=== PATIENT | female | born 1950 | race Caucasian/White ===

== ENCOUNTER 2018-06-10 20:59 | Emergency (ER) | payer OTHER, MEDICARE ==
[2018-06-10 21:13] VITALS: BP 134/83; PULSE 89; RESP 18; TEMP 98.2
[2018-06-10] MEDS ORDERED: KETOROLAC 30 MG/ML 1 ML VIAL IM STA (21:43)
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
--- NOTE | 2018-06-10 22:19 | XR ---
EXAMINATION TYPE: XR wrist complete RT DATE OF EXAM: 06/10/2018 COMPARISON: NONE HISTORY: Right wrist pain TECHNIQUE: 4 views FINDINGS: I see no fracture nor dislocation. Joint spaces are normal. There are no erosions. IMPRESSION: Negative right wrist exam.
== END 2018-06-10 22:51 | disposition home or self-care (01) ==
LOC: EC 20:59
DX: M54.2 Cervicalgia (principal); M25.531 Pain in right wrist; K21.9 Gastro-esophageal reflux disease without esophagitis; E07.9 Disorder of thyroid, unspecified; G62.9 Polyneuropathy, unspecified; Z88.8 Allergy status to other drugs, medicaments and biological substances; Z79.899 Other long term (current) drug therapy; V44.6XXA Car passenger injured in collision with heavy transport vehicle or bus in traffic accident, initial encounter; Y92.410 Unspecified street and highway as the place of occurrence of the external cause
CPT/HCPCS: 99284; 96372; 73110; J1885

== ENCOUNTER → 2018-09-02 | Outpatient (CLI) | payer MEDICARE ==
--- NOTE | 2018-09-03 13:52 | MM ---
Reason for exam: screening (asymptomatic). Last mammogram was performed 1 year ago. History: Patient is postmenopausal. Took hormonal contraceptives for 2 years. Physical Findings: A clinical breast exam by your physician is recommended on an annual basis and results should be correlated with mammographic findings. MG Screening Mammo w CAD Bilateral CC and MLO view(s) were taken. Prior study comparison: September 01, 2017, bilateral MG screening mammo w CAD. September 23, 2016, bilateral MG screening mammo w CAD. The breast tissue is heterogeneously dense. This may lower the sensitivity of mammography. There are central inferior posterior depth right calcifications appearing similar to the priors. No suspicious abnormality. No significant changes when compared with prior studies. ASSESSMENT: Benign, BI-RAD 2 RECOMMENDATION: Routine screening mammogram of both breasts in 1 year.
== END | disposition home or self-care (01) ==
LOC: RADMAMWWP 07:54
PROVIDERS: ATTEND Obstetrics & Gynecology
DX: Z12.31 Encounter for screening mammogram for malignant neoplasm of breast (principal)
CPT/HCPCS: 77067

== ENCOUNTER → 2019-09-05 | Outpatient (CLI) | payer MEDICARE ==
--- NOTE | 2019-09-06 10:26 | MM ---
Reason for exam: screening (asymptomatic). Last mammogram was performed 1 year ago. History: Patient is postmenopausal. Took hormonal contraceptives for 2 years. Physical Findings: A clinical breast exam by your physician is recommended on an annual basis and results should be correlated with mammographic findings. MG Screening Mammo w CAD Bilateral CC and MLO view(s) were taken. Prior study comparison: September 02, 2018, bilateral MG screening mammo w CAD. September 01, 2017, bilateral MG screening mammo w CAD. The breast tissue is heterogeneously dense. This may lower the sensitivity of mammography. There is a stable right central posterior depth group of calcifications back to 2016. No suspicious abnormality. No significant changes when compared with prior studies. ASSESSMENT: Benign, BI-RAD 2 RECOMMENDATION: Routine screening mammogram of both breasts in 1 year.
== END ==
LOC: RADMAMWWP 08:00
PROVIDERS: ATTEND Obstetrics & Gynecology
DX: Z12.31 Encounter for screening mammogram for malignant neoplasm of breast (principal)
CPT/HCPCS: 77067

== ENCOUNTER → 2020-10-16 | Outpatient (CLI) | payer MEDICARE ==
--- NOTE | 2020-10-17 12:11 | MM ---
Reason for exam: screening (asymptomatic). Last mammogram was performed 1 year and 1 month ago. History: Patient is postmenopausal. Took hormonal contraceptives for 2 years. Physical Findings: A clinical breast exam by your physician is recommended on an annual basis and results should be correlated with mammographic findings. MG Screening Mammo w CAD Bilateral CC and MLO view(s) were taken. Prior study comparison: September 05, 2019, bilateral MG screening mammo w CAD. September 02, 2018, bilateral MG screening mammo w CAD. The breast tissue is heterogeneously dense. This may lower the sensitivity of mammography. No significant changes when compared with prior studies. ASSESSMENT: Benign, BI-RAD 2 RECOMMENDATION: Routine screening mammogram of both breasts in 1 year.
== END | disposition home or self-care (01) ==
LOC: RADMAMWWP 08:13
PROVIDERS: ATTEND Obstetrics & Gynecology
DX: Z12.31 Encounter for screening mammogram for malignant neoplasm of breast (principal)
CPT/HCPCS: 77067

== ENCOUNTER → 2021-01-02 | Outpatient (CLI) | payer MEDICARE ==
--- NOTE | 2021-01-02 12:12 | CONS ---
CONSULTATION DATE OF SERVICE: 01/02/2021 This 70-year-old lady had been re-evaluated in Sleep Center for obstructive sleep apnea- hypopnea syndrome. The patient was seen in our office about 14 years ago. At that time, she was diagnosed with obstructive sleep apnea-hypopnea syndrome. She was started on treatment with CPAP and she continued to use CPAP equipment all these years, but she never came for followup. Originally, she feels well and there were no problems, but recently she started to have multiple awakenings from sleep. Her sleep schedule from 11 p.m. to 7:30 a.m. basically 7 days a week. No problem with falling asleep. No TV in bedroom. She wakes up from sleep up to 4 times with nocturia, dry mouth, episodes of gasping for air. In the morning, she wakes up tired falling asleep during the day, worried about her sleep, has episodes of anxiety. She increased her weight from around 160 pounds 10 years ago to 198 pounds, which could be the reason that CPAP equipment not working for her at the present time because again she changed her weight. Extremely high [place] Sleepiness Scale of 18. I checked the patient's CPAP unit. CPAP pressure 7 cm of water, usage 25 out of 30 nights more than 4 hours. Average usage is 6.3 hours per night, which indicated good compliance with CPAP therapy. machine does not have any information about apnea- hypopnea index. PAST MEDICAL HISTORY: Positive for headaches, arthritis, acid reflux, hypothyroidism, sinus problems, episodes of anxiety, acid reflex. PAST SURGICAL HISTORY: Cholecystectomy, hysterectomy, bladder suspension. FAMILY HISTORY: Lung problems. REVIEW OF SYSTEMS: Multiple awakenings from sleep, sleepiness during the day. Extremely high [place] Sleepiness Scale was over 18. PHYSICAL EXAMINATION: GENERAL: lady without distress. VITAL SIGNS: BP 138/69, HR 76, RR 12, height 5 feet 7 inches, weight 198.2, temperature 98.1, oxygen saturation on room air 97%. HEENT: PERRLA, EOMI. Oropharynx extremely low position of soft palate, Mallampati 4. NECK: wide neck 16-1/2 inches in circumference. LUNGS: Clear to percussion and to auscultation. Good air exchange. No wheezing or rhonchi. HEART: S1, S2 regular. No murmurs, gallops, or rubs. ABDOMEN: Soft and nontender. Bowel sounds are present. No organomegaly appreciated. EXTREMITIES: No clubbing or cyanosis. UPSET OPERATOR: Awake, alert, and oriented X3. Cranial nerves 2 to 7 intact. There is no fasciculation or atrophy. noted. No focal deficits observed. IMPRESSION: 1. History of obstructive sleep apnea-hypopnea syndrome for 14 years. The patient continued to use her CPAP equipment with good compliance. CPAP unit is old. No information about apnea-hypopnea index. The patient awakenings from sleep multiple times around 4 with nocturia and gasping for air. The patient increased her weight around 38 pounds since her previous titration. Extremely low position of soft palate. Mallampati 4. Significant excessive daytime sleepiness. [place] Sleepiness Scale is 18. Wide neck 16-1/2 inches in circumference. 2. Extremely high excessive daytime sleepiness with [place] Sleepiness Scale of 18, may dictate necessity to include hypersomnia in differential diagnosis, but most probably it is related to a properly treated obstructive sleep apnea-hypopnea syndrome at the present time. 3. Obesity, body mass index 31.0. 4. Headaches. 5. Arthritis. 6. Acid reflux. 7. Hypothyroidism. 8. Sinus problems. 9. Anxiety episodes. 10.Status post cholecystectomy. 11.Status post bladder suspension. 12.Status post hysterectomy. PLAN: 1. We will repeat CPAP titration for re-evaluation of effective CPAP pressure at the present time. 2. Patient will receive new CPAP equipment. 3. Watching and losing weight. 4. Sleep hygiene with regular time in bed for 7-1/2 to 8 hours. 5. No driving if feeling any sleepiness. Thank you very much for referring this patient for evaluation. Sincerely, Mehran Chapa MD, PhD, FAASM Diplomat of [place] [employer] [place] [employer] Pasting Machine Offbearer of [facility] [place] MMODL / IJN: [id number] /
== END | disposition home or self-care (01) ==
LOC: SLEEP 09:54
PROVIDERS: ATTEND Internal Medicine
DX: G47.33 Obstructive sleep apnea (adult) (pediatric) (principal); E66.9 Obesity, unspecified; R51.9 Headache, unspecified; M19.90 Unspecified osteoarthritis, unspecified site; K21.9 Gastro-esophageal reflux disease without esophagitis; E03.9 Hypothyroidism, unspecified; L98.8 Other specified disorders of the skin and subcutaneous tissue; F41.9 Anxiety disorder, unspecified; Z99.89 Dependence on other enabling machines and devices; Z90.49 Acquired absence of other specified parts of digestive tract; Z98.890 Other specified postprocedural states; Z68.31 Body mass index [BMI] 31.0-31.9, adult
CPT/HCPCS: 99211

== ENCOUNTER → 2021-04-10 | Outpatient (CLI) | payer MEDICARE ==
--- NOTE | 2021-04-10 12:12 | SFUN ---
SLEEP CENTER FOLLOW UP NOTE DATE OF SERVICE: 04/10/2021 This 70-year-old lady has been followed in Sleep Center for treatment of obstructive sleep apnea-hypopnea syndrome. Recently the patient had a CPAP titration and after that she received new CPAP unit. Today is her first visit after she started to use her CPAP equipment. The patient is able to use equipment every night, but was not comfortable with the nasal mask and it was changed to the full face mask. Presently, she is using DreamWear which covered mouth and goes onto the nose and she feels okay with this mask. She feels better in terms of alertness during the day. Previously, her [place] Sleepiness Scale was 18 today it is 12. She still feels a little bit sleepy, but according to patient, she feels significantly better than before. I checked her CPAP unit. Range of the pressure 5-12 with average pressure 10.2, usage 30/30 nights for more than 4 hours. Average usage is 7.7 hours per night. Leak is 13 L/minute which is acceptable. Apnea-hypopnea index is 6.8, slightly increased. PHYSICAL EXAMINATION: GENERAL: Patient in no distress. VITAL SIGNS: BP 130/69, HR 74, RR 16, weight 196.0, temperature 97.7, oxygen saturation at room air 97%. HEENT: PERRLA, EOMI. Oropharynx extremely low position of soft palate, Mallampati 4. NECK: 16-1/2 inches in circumference. LUNGS: Clear to percussion and to auscultation. Good air exchange. No wheezing or rhonchi. HEART: S1, S2 regular. No murmurs, gallops, or rubs. ABDOMEN: Soft and nontender. Bowel sounds are present. No organomegaly appreciated. EXTREMITIES: No clubbing or cyanosis. PURCHASING ASSISTANT: Awake, alert, and oriented X3. Cranial nerves 2 to 7 intact. There is no fasciculation or atrophy. noted. No focal deficits observed. IMPRESSION: 1. Obstructive sleep apnea-hypopnea syndrome. Patient demonstrated 100% compliance with treatment, benefitting from treatment. 2. Obesity. 3. Headaches. 4. Arthritis. 5. Acid reflux. 6. Hypothyroidism. 7. Sinus problems. 8. Episodes of anxiety. 9. Status post cholecystectomy. 10.Status post bladder suspension. 11.Status post hysterectomy. PLAN: 1. I adjust pressure in CPAP unit to the maximal level of 14. 2. Patient will continue to use full-face mask DreamWear. 3. Patient will continue to use PAP equipment every night for the whole night. 4. Sleep hygiene with regular time in bed for at least 7-1/2 to 8 hours. 5. Precautions related to driving. No driving if feeling sleepiness. 6. I will maintain all necessary prescription for PAP supplies including mask, tube, filters. 7. Watching weight. 8. Follow-up visit in 6 months or earlier if patient has any problems. Thank you very much for allowing me to participate in management of your patient. I spent with patient and documentation more 30 minutes. Sincerely, Mehran Chapa MD, PhD, FAASM Diplomat of [place] [employer] [place] [employer] Receiver [employer] of [facility] [place] FREDERICK / JOHN: [id number] /
== END ==
LOC: SLEEP 10:28
PROVIDERS: ATTEND Internal Medicine
DX: G47.33 Obstructive sleep apnea (adult) (pediatric) (principal); E66.9 Obesity, unspecified; M19.90 Unspecified osteoarthritis, unspecified site; K21.9 Gastro-esophageal reflux disease without esophagitis; E03.9 Hypothyroidism, unspecified; J34.9 Unspecified disorder of nose and nasal sinuses; F41.9 Anxiety disorder, unspecified; Z90.49 Acquired absence of other specified parts of digestive tract; Z90.710 Acquired absence of both cervix and uterus; Z96.0 Presence of urogenital implants; Z88.8 Allergy status to other drugs, medicaments and biological substances

== ENCOUNTER → 2021-10-18 | Outpatient (CLI) | payer MEDICARE ==
--- NOTE | 2021-10-21 11:39 | MM ---
Reason for exam: screening (asymptomatic). Last mammogram was performed 1 year ago. History: Patient is postmenopausal. Took hormonal contraceptives for 2 years. Physical Findings: A clinical breast exam by your physician is recommended on an annual basis and results should be correlated with mammographic findings. MG Screening Mammo w CAD Bilateral CC and MLO view(s) were taken. Prior study comparison: October 16, 2020, bilateral MG screening mammo w CAD. September 05, 2019, bilateral MG screening mammo w CAD. The breast tissue is heterogeneously dense. This may lower the sensitivity of mammography. There is no discrete abnormality. No significant changes when compared with prior studies. ASSESSMENT: Negative, BI-RAD 1 RECOMMENDATION: Routine screening mammogram of both breasts in 1 year.
== END | disposition home or self-care (01) ==
LOC: RADMAMWWP 06:52
PROVIDERS: ATTEND Obstetrics & Gynecology
DX: Z12.31 Encounter for screening mammogram for malignant neoplasm of breast (principal)
CPT/HCPCS: 77067

== ENCOUNTER → 2021-10-30 | Outpatient (CLI) | payer MEDICARE ==
--- NOTE | 2021-10-30 22:11 | SFUN ---
SLEEP CENTER FOLLOW UP NOTE DATE OF SERVICE: 10/30/2021 Follow-up visit this 71-year-old lady has been followed in Sleep Center for treatment of obstructive sleep apnea-hypopnea syndrome. Patient continued to use her CPAP equipment every night. Does not snore. [place] Sleepiness Scale is 8 which is in normal range. During the last visit it was 12 and subsequently goes down from 18. Subsequently, she improved her alertness during the day. I checked her CPAP unit. Range of the pressure 5-14, average pressure 10.9. Usage is 29/30 nights for more than 4 hours, average 7.5 hours per night. Leak is only L/minute. Apnea-hypopnea index is 4, which is in normal range. The patient has been fitted with a Dream Wear under the nose mask and the patient likes this mask a lot. MEDICATIONS: Levothyroxine 112 mcg 4 times a week and 110 mcg 3 times a week, cetirizine 10 mg once a day, famotidine 20 mg 2 tablets a day, tolterodine 4 mg once a day. 128 once a day. PHYSICAL EXAMINATION: GENERAL: Patient in no distress. BP 103/66, HR 73, RR 15, height 5 feet 6-1/4 inches, weight 173.8 pounds, temperature 98.2, oxygen saturation at room air 98%. Oropharynx: Extremely low position of soft palate, Mallampati 4. NECK: Supple, no JVD. Thyroid is not palpable. LUNGS: Clear to percussion and to auscultation. Good air exchange. No wheezing or rhonchi. HEART: S1, S2 regular. No murmurs, gallops, or rubs. ABDOMEN: Soft and nontender. Bowel sounds are present. No organomegaly appreciated. EXTREMITIES: No clubbing or cyanosis. MEAT MOLDER: Awake, alert, and oriented X3. Cranial nerves 2 to 7 intact. There is no fasciculation or atrophy. noted. No focal deficits observed. IMPRESSION: 1. Obstructive sleep apnea-hypopnea syndrome. Patient demonstrated great compliance with treatment, benefitting from treatment. The patient has been fitted with a different type of mask DreamWear under the nose. Patient likes it. 2. Overweight, body mass index 27.7. The patient lost weight since last visit. 3. Headaches. 4. Arthritis. 5. Acid reflux. 6. Sinuses problems. 7. Hypothyroidism. 8. Episodes of anxiety. 9. Status post cholecystectomy. 10.Status post hysterectomy. 11.Status post bladder suspension. PLAN: 1. Prescription for Dream Wear under the nose mask. 2. Patient will continue to use PAP equipment every night for the whole night. 3. Sleep hygiene with regular time in bed for at least 7-1/2 to 8 hours. 4. Precautions related to driving. No driving if feeling sleepiness. 5. I will maintain all necessary prescription for PAP supplies including mask, tube, filters. 6. Watching weight. 7. Follow-up visit in 6 months or earlier if patient has any problems. Thank you very much for allowing me to participate in the management of your patient. Sincerely, FREDERICK / LLOYDN: [id number] /
== END | disposition home or self-care (01) ==
LOC: SLEEP 09:58
PROVIDERS: ATTEND Internal Medicine
DX: G47.33 Obstructive sleep apnea (adult) (pediatric) (principal); E66.3 Overweight; Z68.27 Body mass index [BMI] 27.0-27.9, adult; R51.9 Headache, unspecified; M19.90 Unspecified osteoarthritis, unspecified site; K21.9 Gastro-esophageal reflux disease without esophagitis; E03.9 Hypothyroidism, unspecified; F41.9 Anxiety disorder, unspecified

== ENCOUNTER → 2022-10-20 | Outpatient (CLI) | payer MEDICARE ==
--- NOTE | 2022-10-21 09:56 | MM ---
Reason for Exam: Screening (asymptomatic). Last screening mammogram was performed 12 month(s) ago. Patient History: Menarche at age 14. First Full-Term at age 25. Left ovary removed at age 56. Right ovary removed at age 56. Hysterectomy at age 56. Postmenopausal. Patient used Hormonal Contraceptives for 2 years. Risk Values: [place] 5 year model risk: 1.5%. NCI Lifetime model risk: 4.8%. Prior Study Comparison: 09/05/2019 Bilateral Screening Mammogram, [facility]. 10/16/2020 Bilateral Screening Mammogram, [facility]. 10/18/2021 Bilateral Screening Mammogram, [facility]. Tissue Density: The breast tissue is heterogeneously dense. This may lower the sensitivity of mammography. Findings: Analyzed By CAD. There is no suspicious group of microcalcifications or new suspicious mass in either breast. Not appearing calcifications within both breasts. No significant change from prior exam. Overall Assessment: Benign, BI-RAD 2 Management: Screening Mammogram of both breasts in 1 year. A clinical breast exam by your physician is recommended on an annual basis and results should be correlated with mammographic findings. Electronically signed and approved by: Terrell Veloz D.O.
== END | disposition home or self-care (01) ==
LOC: RADMAMWWP 07:48
PROVIDERS: ATTEND Obstetrics & Gynecology
DX: Z12.31 Encounter for screening mammogram for malignant neoplasm of breast (principal); Z78.0 Asymptomatic menopausal state; Z90.721 Acquired absence of ovaries, unilateral
CPT/HCPCS: 77063; 77067

== ENCOUNTER → 2022-10-29 | Outpatient (CLI) | payer MEDICARE ==
--- NOTE | 2022-10-29 10:58 | P.PN ---
Subjective DATE: 10/29/2022 FOLLOW UP VISIT. Patient with obstructive sleep apnea hypopnea syndrome return to sleep center for follow-up visit. Information from previous visit have been reviewed. Patient is using PAP equipment every night for the whole night, getting PAP supplies in time. The patient does not have significant problems with the mask, PAP unit and humidification. [place] sleepiness scale is 8, which is normal. I checked information from PAP unit. PAP unit pressure 5-14, average 11.5 cm H2O. Usage is 100 % for more then 4 hours, average 7.3 hours per night. Leak is 2.6 l/m, which is in acceptable range. Apnea Hypopnea Index is 4.3, which is normal, but close to the border. MEDICATIONS:1. Levothyroxine 112 g once a day 2. Cetirizine 10 mg once a day 3. Pepcid 20 mg once a day 4. Detrol 4 mg once a day 5. Flonase 6. Xanax 0.25 mg as needed During physical exam: GENERAL: A pleasant patient without any distress. VITAL SIGNS: BP 138/71, HR 76, RR 14 , weight 187.8, temperature 97.3, oxygen saturation at room air 97 % . HEENT: PERRLA, EOMI.low position of soft palate, Mallapati 4 . NECK: Supple. No JVD. LUNGS: Clear to percussion and to auscultation. Good air exchange. No wheezing or rhonchi. HEART: S1, S2 regular. ABDOMEN: Soft and nontender. Slightly obese EXTREMITIES: No clubbing or cyanosis. RESEARCH CONTRACTS SUPERVISOR: Awake, alert, and oriented x3. No focal deficit. Impressions: 1. Obstructive sleep apnea-hypopnea syndrome. Patient demonstrated great compliance with treatment, benefiting from treatment. 2. Hypothyroidism. 3. Episodes of anxiety. 4. History of arthritis. 5. Acid reflux. 6. Sinuses problems. 7. Overweight, borderline to obesity body mass index 29.3, patient increased her weight 114 pounds comparing to the previous visit. Plan: 1. Continue using PAP equipment every night for the whole night. 2. To change air filter at least 1-2 times per month. 3. PAP unit should stay lower then position of the head. 4. Advised patient to remove all remaining water from humidifier canister daily and make it dry after each usage. Refill canister with fresh distilled water before each usage. 5. Sleep hygiene with regular time in bed for at least 8 hours. 6. Precautions related to driving. No driving if feel any sleepiness. 7. I will maintain prescription for PAP supplies including mask, tube, filters. 8. Follow up visit in 6 months or earlier if patient has any problems. 9. Watching and losing weight. Thank you very much for allowing me to participate in the management of your patient. Mehran Chapa MD, PhD, FAASM. Diplomat of [place] [employer], Sleep Medicine Board by [place] [employer] Digital Content Specialist of [facility] [place]
== END ==
LOC: SLEEP 09:52
PROVIDERS: ATTEND Internal Medicine
DX: G47.33 Obstructive sleep apnea (adult) (pediatric) (principal); Z99.89 Dependence on other enabling machines and devices; E03.9 Hypothyroidism, unspecified; K21.9 Gastro-esophageal reflux disease without esophagitis; F41.9 Anxiety disorder, unspecified; Z87.39 Personal history of other diseases of the musculoskeletal system and connective tissue; J01.90 Acute sinusitis, unspecified; E66.3 Overweight; Z88.8 Allergy status to other drugs, medicaments and biological substances; Z68.29 Body mass index [BMI] 29.0-29.9, adult
CPT/HCPCS: 99212

== ENCOUNTER → 2023-10-21 | Outpatient (CLI) | payer MEDICARE ==
--- NOTE | 2023-10-22 12:16 | MM ---
Reason for Exam: Screening (asymptomatic). Last screening mammogram was performed 12 month(s) ago. Patient History: Menarche at age 14. First Full-Term at age 25. Left ovary removed at age 56. Right ovary removed at age 56. Hysterectomy at age 56. Postmenopausal. Patient used Hormonal Contraceptives for 2 years. Risk Values: Nahomi 5 year model risk: 1.5%. NCI Lifetime model risk: 4.5%. Prior Study Comparison: 10/16/2020 Bilateral Screening Mammogram, [facility]. 10/18/2021 Bilateral Screening Mammogram, [facility]. 10/20/2022 Bilateral MG 3D screening mammo w/cad, [facility]. Tissue Density: The breast tissue is heterogeneously dense. This may lower the sensitivity of mammography. Findings: Analyzed By CAD. There is no suspicious group of microcalcifications or new suspicious mass in either breast. Overall Assessment: Benign, BI-RAD 2 Management: Screening Mammogram of both breasts in 1 year. . Patient should continue monthly self-breast exams. A clinical breast exam by your physician is recommended on an annual basis. This exam should not preclude additional follow-up of suspicious palpable abnormalities. Note on Nahomi scores and lifetime risk: 1. A Nahomi score greater than 3% is considered moderate risk. If this is the case, consider specialist referral to assess eligibility for a risk reducing agent. 2. If overall lifetime risk for the development of breast cancer is 20% or higher, the patient may qualify for future screening with alternating mammogram and breast MRI. Electronically signed and approved by: Brock Solitario M.D. Radiologis
== END | disposition home or self-care (01) ==
LOC: RADMAMWWP 08:51
PROVIDERS: ATTEND Family Medicine
DX: Z12.31 Encounter for screening mammogram for malignant neoplasm of breast (principal); Z78.0 Asymptomatic menopausal state; Z92.0 Personal history of contraception
CPT/HCPCS: 77067

== ENCOUNTER → 2023-11-04 | Outpatient (CLI) | payer MEDICARE ==
--- NOTE | 2023-11-04 11:09 | P.PN ---
Subjective DATE: 11/04/2023 FOLLOW UP VISIT. Patient with obstructive sleep apnea hypopnea syndrome return to sleep center for follow-up visit. Information from previous visit have been reviewed. Patient is using PAP equipment every night for the whole night, getting PAP supplies in time. The patient does not have significant problems with the mask, PAP unit and humidification. Candia sleepiness scale is 11, which is minimally increased. Patient sleeps very well. I checked information from PAP unit. PAP unit pressure 5-14, average 11.1 cm H2O. Usage is 100 % for more then 4 hours, average 8.1 hours per night. Leak is 0.5 l/m, which is in acceptable range. Apnea Hypopnea Index is 4.6, which is normal. MEDICATIONS:1. Levothyroxine 2. Famotidine 20 mg 2 tablets a day 3. Alprazolam 0.25 mg as needed 4. Zyrtec 10 mg once a day During physical exam: GENERAL: A pleasant patient without any distress. VITAL SIGNS: BP 131/72, HR 102, RR 12, weight 184.6, temperature 97.9, oxygen saturation at room air 96 % . HEENT: PERRLA, EOMI.low position of soft palate, Mallapati 4 . NECK: Supple. No JVD. LUNGS: Clear to percussion and to auscultation. Good air exchange. No wheezing or rhonchi. HEART: S1, S2 regular. ABDOMEN: Soft and nontender.[] EXTREMITIES: No clubbing or cyanosis. GAMES DEALER: Awake, alert, and oriented x3. No focal deficit. Impressions: 1. Obstructive sleep apnea-hypopnea syndrome. Patient demonstrated great compliance with treatment, benefiting from treatment. 2. Acid reflux. 3. Hypothyroidism. 4. History of episodes of anxiety. 5. History of arthritis. 6. Sinuses problems. 7. Mild obesity BMI 31.1. Plan: 1. Continue using PAP equipment every night for the whole night. 2. To change air filter at least 1-2 times per month. 3. PAP unit should stay lower then position of the head. 4. Advised patient to remove all remaining water from humidifier canister daily and make it dry after each usage. Refill canister with fresh distilled water before each usage. 5. Sleep hygiene with regular time in bed for at least 8 hours. 6. Precautions related to driving. No driving if feel any sleepiness. 7. I will maintain prescription for PAP supplies including mask, tube, filters. 8. Watching and losing weight. 9. Follow up visit in 6 months or earlier if patient has any problems. Thank you very much for allowing me to participate in the management of your patient. Mehran Chapa MD, PhD, FAASM. Diplomat of [place] [employer], Sleep Medicine Board by [place] [employer] Corporate Webmaster of [facility] [place]
== END ==
LOC: 3 N SLEEP 10:27
PROVIDERS: ATTEND Internal Medicine
DX: G47.33 Obstructive sleep apnea (adult) (pediatric) (principal); K21.9 Gastro-esophageal reflux disease without esophagitis; E03.9 Hypothyroidism, unspecified; F41.9 Anxiety disorder, unspecified; J32.9 Chronic sinusitis, unspecified; E66.9 Obesity, unspecified; M19.90 Unspecified osteoarthritis, unspecified site; Z99.89 Dependence on other enabling machines and devices; Z68.31 Body mass index [BMI] 31.0-31.9, adult; Z79.890 Hormone replacement therapy; Z88.8 Allergy status to other drugs, medicaments and biological substances
CPT/HCPCS: 99212

== ENCOUNTER 2024-01-12 21:19 | Emergency (ER) | payer MEDICARE ==
[2024-01-12 21:54] VITALS: BP 129/72; PULSE 103; RESP 18; TEMP 96.9
--- NOTE | 2024-01-12 23:13 | ED ---
Abdominal Pain HPI - General Source: patient Mode of arrival: ambulatory Limitations: no limitations <Tara James - Last Filed: 01/12/24 23:12> <Terrance Ribeiro - Last Filed: 01/13/24 01:10> - General Chief Complaint: Abdominal Pain Stated Complaint: constipation abd pain N/V dizzy weakness Time Seen by Provider: 01/12/24 23:12 - History of Present Illness Initial Comments: 73-year-old female presenting with chief complaint of constipation. Last bowel movement was 2 days ago. (Tara James) 73-year-old female who is otherwise healthy presenting for evaluation of constipation and the sensation that she has to have a bowel movement but is unable to. Symptoms have been present for the past several days. She denies significant abdominal pain. Denies fever. Denies dysuria. (Terrance Ribeiro) - Related Data Home Medications Medication Instructions Recorded Confirmed ALPRAZolam [Xanax] 0.25 mg PO DAILY PRN 08/01/14 06/10/18 Cholecalciferol [Vitamin D3] 1,000 unit PO DAILY 08/01/14 06/10/18 Levothyroxine Sodium [Synthroid] 100 mcg PO SUFRSA 08/01/14 06/10/18 Levothyroxine Sodium [Synthroid] 112 mcg PO MOTUWETH 08/01/14 06/10/18 Cetirizine HCl [Zyrtec] 10 mg PO DAILY 06/10/18 06/10/18 Gabapentin [Neurontin] 100 mg PO HS 06/10/18 06/10/18 Ranitidine HCl [Zantac] 150 mg PO BID 06/10/18 06/10/18 Allergies Allergy/AdvReac Type Severity Reaction Status Date / Time fluoxetine HCl [From Prozac] Allergy Anaphylaxis Verified 06/10/18 21:24 Review of Systems ROS Other: All systems not noted in ROS Statement are negative. <Tara James - Last Filed: 01/12/24 23:12> ROS Other: All systems not noted in ROS Statement are negative. <Terrance Ribeiro - Last Filed: 01/13/24 01:10> ROS Statement: Those systems with pertinent positive or pertinent negative responses have been documented in the HPI. Past Medical History Past Medical History: GERD/Reflux, Thyroid Disorder Additional Past Medical History / Comment(s): NEUROPATHY History of Any Multi-Drug Resistant Organisms: None Reported Past Surgical History: Cholecystectomy, Hysterectomy, Tonsillectomy Additional Past Surgical History / Comment(s): BLADDER SUSPENSION Past Psychological History: No Psychological Hx Reported Smoking Status: Never smoker Past Alcohol Use History: None Reported Past Drug Use History: None Reported <Tara James - Last Filed: 01/12/24 23:12> General Exam Limitations: no limitations <Tara James - Last Filed: 01/12/24 23:12> General appearance: alert, in no apparent distress Head exam: Present: atraumatic, normocephalic Eye exam: Present: normal appearance, PERRL ENT exam: Present: normal exam Neck exam: Present: normal inspection. Absent: tenderness, meningismus Respiratory exam: Present: normal lung sounds bilaterally. Absent: respiratory distress, wheezes Cardiovascular Exam: Present: regular rate, normal rhythm GI/Abdominal exam: Present: soft. Absent: distended, tenderness Rectal exam: Present: fecal impaction Extremities exam: Present: normal inspection Neurological exam: Present: alert, oriented X3 Psychiatric exam: Present: normal affect, normal mood Skin exam: Present: warm, dry, intact <Terrance Ribeiro - Last Filed: 01/13/24 01:10> - General Exam Comments Initial Comments: Visual Physical Exam Vital signs reviewed General: Well-appearing, nontoxic, no acute distress. Head: Normocephalic, atraumatic Eyes: PERRLA, EOMI ENT: Airway patent Chest: Nonlabored breathing Skin: No visual rash, normal skin tone Neuro: Alert and oriented 3 Musculoskeletal: No gross abnormalities (Tara James) Course Vital Signs 01/12/24 21:48 Temperature 96.9 F L Pulse Rate 103 H Respiratory 18 Rate Blood Pressure 129/72 O2 Sat by Pulse 95 Oximetry Procedures - Rectal Disimpaction Consent Obtained: verbal consent Indication: fecal impaction Procedural Sedation: No Sedation/Analgesia: none Technique: manual disimpaction with gloved finger Result: significant stool output Complications: none Patient Tolerated Procedure: well <Terrance Ribeiro - Last Filed: 01/13/24 01:10> Medical Decision Making <Tara James - Last Filed: 01/12/24 23:12> <Terrance Ribeiro - Last Filed: 01/13/24 01:10> - Medical Decision Making I performed the quick note portion of this visit, electronically signed Tara James PA-C (Tara James) Was pt. sent in by a medical professional or institution ([facility], [employer], urgent care, hospital, or fdc...) When possible be specific @ -No Did you speak to anyone other than the patient for history (EMS, parent, family, police, friend...)? What history was obtained from this source @ -No Did you review nursing and triage notes (agree or disagree)? Why? @ -I reviewed and agree with nursing and triage notes Were old charts reviewed (outside hosp., previous admission, EMS record, old EKG, old radiological studies, urgent care reports/EKG's, fdc records)? Report findings @ -No old charts were reviewed Differential Diagnosis (chest pain, altered mental status, abdominal pain women, abdominal pain men, vaginal bleeding, weakness, fever, dyspnea, syncope, headache, dizziness, GI bleed, back pain, seizure, CVA, palpatations, mental health, musculoskeletal)? @ -Differential Abdominal Pain Women: Appendicitis, Cholecystitis, diverticulosis, ischemic bowel, pancreatitis, hepatitis, UTI, gastroenteritis, AAA, incarcerated hernia, bowel obstruction, constipation, inflammatory bowel, hepatitis, peptic ulcer disease, splenic infarction, perforated viscus, vulvitis, ovarian torsion, PID, kidney stone, placenta abruption, this is not meant to be an all-inclusive list EKG interpreted by me (3pts min.). @ -As above X-rays interpreted by me (1pt min.). @X-ray of the abdomen showing rectal stool burden and stool in the right hemicolon. CT interpreted by me (1pt min.). @ -None done U/S interpreted by me (1pt. min.). @ -None done What testing was considered but not performed or refused? (CT, X-rays, U/S, labs)? Why? @ -None What meds were considered but not given or refused? Why? @ -None Did you discuss the management of the patient with other professionals (professionals i.e. [facility], [employer], lab, RT, psych nurse, social services aide, performance improvement analyst, teacher, life science technical officer, caser up)? Give summary @ -No Was smoking cessation discussed for >3mins.? @ -No Was critical care preformed (if so, how long)? @ -No Were there social determinants of health that impacted care today? How? (Homelessness, low income, unemployed, alcoholism, drug addiction, transportation, low edu. Level, literacy, decrease access to med. care, group home, rehab)? @ -No Was there de-escalation of care discussed even if they declined (Discuss DNR or withdrawal of care, Hospice)? DNR status @ -No What co-morbidities impacted this encounter? (DM, HTN, Smoking, COPD, CAD, Cancer, CVA, ARF, Chemo, Hep., AIDS, mental health diagnosis, sleep apnea, morbid obesity)? @ -None Was patient admitted / discharged? Hospital course, mention meds given and route, prescriptions, significant lab abnormalities, going to OR and other pertinent info. @ -[73-year-old female with symptoms consistent with constipation, digital rectal exam reveals large fecal impaction, patient is disimpacted in the emergency department and is able to have a large bowel movement. Feels completely better. She is instructed on medications to take at home. Undiagnosed new problem with uncertain prognosis? @ -No Drug Therapy requiring intensive monitoring for toxicity (Heparin, Nitro, Insulin, Cardizem)? @ -No Were any procedures done? @ -[Yes, fecal disimpaction Diagnosis/symptom? @ -Constipation Acute, or Chronic, or Acute on Chronic? @ -Acute Uncomplicated (without systemic symptoms) or Complicated (systemic symptoms)? @ -[default Side effects of treatment? @ -No Exacerbation, Progression, or Severe Exacerbation? @ -No Poses a threat to life or bodily function? How? (Chest pain, USA, MD, pneumonia, PE, COPD, DKA, ARF, appy, cholecystitis, CVA, Diverticulitis, Homicidal, Suicidal, threat to staff... and all critical care pts) @ -No (Terrance Ribeiro) Disposition <Tara James - Last Filed: 01/12/24 23:12> Is patient prescribed a controlled substance at d/c from ED?: No Time of Disposition: 01:08 <Terrance Ribeiro - Last Filed: 01/13/24 01:10> Clinical Impression: Constipation Disposition: HOME SELF-CARE Condition: Good Instructions (If sedation given, give patient instructions): Constipation (ED) Referrals: Abrahan Esqueda DO [Primary Care Provider] - 1-2 days
--- NOTE | 2024-01-13 00:45 | XR ---
EXAM: XR Abdomen, 1 View CLINICAL HISTORY: ITS.REASON XR Reason: constipation TECHNIQUE: Frontal supine view of the abdomen/pelvis. COMPARISON: No relevant prior studies available. FINDINGS: Gastrointestinal tract: Excess stool within the rectum and right hemicolon. No evidence of bowel obstruction. Organs: Stone in the left kidney measuring 1 cm. IMPRESSION: 1. Excess stool within the rectum and right hemicolon. No evidence of bowel obstruction. 2. Stone in the left kidney measuring 1 cm.
[2024-01-13] MEDS: NA PHOS,M-B/NA PHOS,DI-BA 133 ML ENEMA RECTAL STA (01:01)
== END 2024-01-13 01:15 | disposition home or self-care (01) ==
LOC: EC 21:19
DX: K59.00 Constipation, unspecified (principal); E07.9 Disorder of thyroid, unspecified; K21.9 Gastro-esophageal reflux disease without esophagitis; G62.9 Polyneuropathy, unspecified; Z79.890 Hormone replacement therapy; Z79.899 Other long term (current) drug therapy; Z88.8 Allergy status to other drugs, medicaments and biological substances
CPT/HCPCS: 74018; 99284

== ENCOUNTER → 2024-10-25 | Outpatient (CLI) | payer MEDICARE ==
--- NOTE | 2024-10-31 10:47 | MM ---
Reason for Exam: Screening (asymptomatic). Last screening mammogram was performed 12 month(s) ago. Patient History: Menarche at age 14. First Full-Term at age 25. Left ovary removed at age 56. Right ovary removed at age 56. Hysterectomy at age 56. Postmenopausal. Patient used Hormonal Contraceptives for 2 years. Risk Values: Nahomi 5 year model risk: 1.6%. NCI Lifetime model risk: 4.1%. Prior Study Comparison: 10/18/2021 Bilateral Screening Mammogram, [facility]. 10/20/2022 Bilateral MG 3D screening mammo w/cad, [facility]. 10/21/2023 Bilateral MG screening mammo w CAD, [facility]. Tissue Density: The breasts are heterogeneously dense, which may obscure small masses. Findings: Analyzed By CAD. There is no suspicious group of microcalcifications or new suspicious mass in either breast. Overall Assessment: Benign, BI-RAD 2 Management: Screening Mammogram of both breasts in 1 year. . Patient should continue monthly self-breast exams. A clinical breast exam by your physician is recommended on an annual basis. This exam should not preclude additional follow-up of suspicious palpable abnormalities. Note on Nahomi scores and lifetime risk: 1. A Nahomi score greater than 3% is considered moderate risk. If this is the case, consider specialist referral to assess eligibility for a risk reducing agent. 2. If overall lifetime risk for the development of breast cancer is 20% or higher, the patient may qualify for future screening with alternating mammogram and breast MRI. [facility], , 10/31/2024 10:45 AM. Electronically signed and approved by: Brock Solitario M.D. Radiologis
== END | disposition home or self-care (01) ==
LOC: RADMAMWWP 07:16
PROVIDERS: ATTEND Family Medicine
DX: Z12.31 Encounter for screening mammogram for malignant neoplasm of breast (principal); Z78.0 Asymptomatic menopausal state; Z90.722 Acquired absence of ovaries, bilateral; R92.333 Mammographic heterogeneous density, bilateral breasts
CPT/HCPCS: 77067

== ENCOUNTER → 2024-11-02 | Outpatient (CLI) | payer MEDICARE ==
[2024-11-02 10:41] VITALS: BP 128/77; PULSE 77; RESP 16; TEMP 97.6
--- NOTE | 2024-11-02 10:55 | P.PROGSL ---
Subjective DATE: 11/02/2024 FOLLOW UP VISIT. Patient with obstructive sleep apnea hypopnea syndrome return to sleep center for follow-up visit. Information from previous visit have been reviewed. Patient is using PAP equipment every night for the whole night, getting PAP supplies in time. The patient does not have significant problems with the mask, PAP unit and humidification. Marydel sleepiness scale is 9, which is close to the border. I checked information from PAP unit. PAP unit pressure 5-14, average 11.5 cm H2O. Usage is 100% for more then 4 hours, average 8.5 hours per night. Leak is 12 l/m, which is in acceptable range. Apnea Hypopnea Index is 4.6, which is normal. MEDICATIONS have been reviewed, please see below. During physical exam: GENERAL: A pleasant patient without any distress. VITAL SIGNS: Please see below, weight is 200.0 lbs. HEENT: PERRLA, EOMI.low position of soft palate, Mallapati 4 . NECK: Supple. No JVD. LUNGS: Clear to percussion and to auscultation. Good air exchange. No wheezing or rhonchi. HEART: S1, S2 regular. ABDOMEN: Soft and nontender.[] EXTREMITIES: No clubbing or cyanosis. BOOKKEEPING ASSISTANT: Awake, alert, and oriented x3. No focal deficit. Impressions: 1. Obstructive sleep apnea-hypopnea syndrome. Patient demonstrated great compliance with treatment, benefiting from treatment. 2. Obesity, BMI 32.7, patient increased weight on 16 pounds comparing with previous visit. 3. Hypothyroidism. 4. History of episodes of anxiety. 5. Acid reflux. 6. History of arthritis. 7. Sinus problems. 8. Allergy. Plan: 1. Continue using PAP equipment every night for the whole night. 2. Sleep hygiene with regular time in bed for at least 7.5-8 hours 3. PAP unit should stay lower then position of the head. 4. Advised patient to remove all remaining water from humidifier canister daily and make it dry after each usage. Refill canister with fresh distilled water before each usage. 5. Watching weight. 6. Precautions related to driving. No driving if feel any sleepiness. 7. I will maintain prescription for PAP supplies including mask, tube, filters. 8. Follow up visit in 8 months or earlier if patient has any problems. Thank you very much for allowing me to participate in the management of your patient. Mehran Chapa MD, PhD, FAASM. Diplomat of [place] [employer], Sleep Medicine Board by [place] [employer] Director Treasurer of [facility] [place] Objective - Vital Signs Vital Signs: Vital Signs Temp 97.6 F 11/02/24 10:40 Pulse 77 11/02/24 10:40 Resp 16 11/02/24 10:40 BP 128/77 11/02/24 10:40 Pulse Ox 96 11/02/24 10:40 FiO2 Intake & Output 11/01/24 11/02/24 11/02/24 18:59 06:59 18:59 Weight 90.718 kg Home Medications: Home Medications Medication Instructions Recorded Confirmed Type ALPRAZolam [Xanax] 0.25 mg PO DAILY PRN 08/01/14 11/02/24 History Cholecalciferol [Vitamin D3] 5,000 unit PO DAILY 08/01/14 11/02/24 History Levothyroxine Sodium [Synthroid] 100 mcg PO DANIELSON 08/01/14 11/02/24 History Levothyroxine Sodium [Synthroid] 112 mcg PO MOTUWETHFRSA 08/01/14 11/02/24 History Cetirizine HCl [Zyrtec] 10 mg PO DAILY 06/10/18 11/02/24 History Acetaminophen/Diphenhydramine 1 tab PO HS 08/16/24 11/02/24 History [Tylenol PM 500-25mg] Docusate [Colace] 100 mg PO BID 08/16/24 11/02/24 History Famotidine 20 mg PO BID 08/16/24 11/02/24 History Inulin/Chromium Picolinate [Fiber 1 tab PO BID 08/16/24 08/16/24 History Gummies Chew] Miebo 1 drop BOTH EYES QID PRN 08/16/24 08/16/24 History Multivit with Calcium,Iron,Min 1 each PO DAILY 08/16/24 08/16/24 History [Women's Multivitamin] Sodium Chloride 5% Ophth Oint 1 dose BOTH EYES HS 08/16/24 08/16/24 History [Kaylie 128] Tolterodine Tartrate [Tolterodine 2 mg PO HS 08/16/24 08/16/24 History Tartrate ER] Fluticasone Propionate 2 sprays EA NOSTRIL DIRECTED 11/02/24 11/02/24 History [Fluticasone Propionate [place] 50 mcg Nasal [place]]
== END ==
LOC: 3 N SLEEP 10:10
PROVIDERS: ATTEND Internal Medicine
DX: G47.33 Obstructive sleep apnea (adult) (pediatric) (principal); E66.9 Obesity, unspecified; Z68.32 Body mass index [BMI] 32.0-32.9, adult; E03.9 Hypothyroidism, unspecified; F41.9 Anxiety disorder, unspecified; K21.9 Gastro-esophageal reflux disease without esophagitis; J34.89 Other specified disorders of nose and nasal sinuses; Z87.39 Personal history of other diseases of the musculoskeletal system and connective tissue; Z99.89 Dependence on other enabling machines and devices; Z88.8 Allergy status to other drugs, medicaments and biological substances
CPT/HCPCS: 99212

== ENCOUNTER 2024-11-23 08:59 | Day surgery (SDC) | payer MEDICARE ==
[~2024-11-23 08:59] MED LIST: LACTATED RINGERS 1,000 ML IV SCH; LIDOCAINE 1% (10MG/ML) FOR IV START INTRADERMA PRN; ONDANSETRON 4 MG/2 ML VIAL IVP PRN
[2024-11-23] MEDS: SODIUM CHLORIDE 0.9% 1,000 ML IV ONE (09:20)
[2024-11-23 09:29] VITALS: TEMP 98.6
[2024-11-23] MEDS ORDERED: PROPOFOL 10 MG/ML 20 ML VIAL IV ONE (09:46)
--- NOTE | 2024-11-23 10:15 | P.PCN ---
Date of Procedure: 11/23/24 Procedure(s) Performed: BRIEF HISTORY: Patient is a 74-year-old pleasant white female scheduled for an elective colonoscopy as a part of screening for colon cancer. PROCEDURE PERFORMED: Colonoscopy snare polypectomy. PREOPERATIVE DIAGNOSIS: Screening for colon cancer. IV sedation per Anesthesia. PROCEDURE: After informed consent was obtained, the patient, was brought into the endoscopy unit. IV sedation was administered by Anesthesia under continuous monitoring. Digital rectal examination was normal. Initially the Olympus CF-160 flexible video colonoscope was then inserted in the rectum, gradually advanced into the cecum without any difficulty. Careful examination was performed as the scope was gradually being withdrawn. Ileocecal valve and the appendiceal orifice were visualized and appeared normal. Prep was excellent. Mucosa of the cecum, ascending colon, transverse colon, appeared normal. The descending colon there was a 5 mm polyp that was removed by cold snare polypectomy. Rest of the descending colon, sigmoid colon, and rectum appeared normal. Retroflexion was performed in the rectum and no lesions were seen. The patient tolerated the procedure well. IMPRESSION: 5 mm descending colon polyp status post cold snare polypectomy Rest of the colon appeared normal RECOMMENDATIONS: Findings of this examination were discussed with the patient as well as her family. She was advised to follow-up with the biopsy results. If the biopsy reveals adenoma she can have repeat colonoscopy in 5 years..
[2024-11-23 10:50] VITALS: BP 120/64; PULSE 67; RESP 16
== END 2024-11-23 10:50 | disposition home or self-care (01) ==
LOC: ORWHC2ENDO 08:59
PROVIDERS: ATTEND Internal Medicine Gastroenterology
DX: Z12.11 Encounter for screening for malignant neoplasm of colon (principal); D12.4 Benign neoplasm of descending colon; G47.33 Obstructive sleep apnea (adult) (pediatric); F41.9 Anxiety disorder, unspecified; G62.9 Polyneuropathy, unspecified; E07.9 Disorder of thyroid, unspecified; Z79.899 Other long term (current) drug therapy; Z79.890 Hormone replacement therapy; Z90.49 Acquired absence of other specified parts of digestive tract; Z98.890 Other specified postprocedural states
CPT/HCPCS: 45385; J2704; 88305